=== PATIENT | female | born 1955 | race Asian ===

== ENCOUNTER 2021-12-05 09:50 | Emergency (ER) | payer SELFPAY ==
[~2021-12-05] VITALS: Ht 149.9 cm; Wt 56.5 kg
--- NOTE | 2021-12-05 09:54 | NUR ---
PT AMBULATED TO BED 5
[2021-12-05 10:00] VITALS: BP 169/91
--- NOTE | 2021-12-05 10:15 | NUR ---
66 Y/O FEMALE BIB SON IN [place] DUE TO R SIDED LOWER BACK PAIN. PT DENIES ANY TRAUMA, BUT RECALLS PAIN STARTED AFTER COOKING AND BEING ON HER FEET ALL DAY X 3 DAYS AGO. PT DENIES SOB, CHEST PAIN, FEVER OR CHILLS. PT DENIES DYSURIA, N/V/D. PT ALERT AND ORIENTED X4. BED IN LOWEST POSITION. BED RAIL X1. PMH: HTN, HYPERCHOLESTRONEMIA MEDS:ALMOPODINE, ATROVASTATIN NKA
--- NOTE | 2021-12-05 10:25 | NUR ---
Dr. Avery at bedside to exam patient with hotel recreational facilities manager.
[2021-12-05] MEDS ORDERED: KETOROLAC 30 MG/ML VIAL IM ONE (10:55)
--- NOTE | 2021-12-05 11:00 | NUR ---
PT AMBULATED TO THE RESTROOM
--- NOTE | 2021-12-05 11:23 | NUR ---
PT TAKEN TO XR [facility]IA [facility]
--- NOTE | 2021-12-05 11:36 | NUR ---
[facility]
--- NOTE | 2021-12-05 11:48 | NUR ---
URINE WALKED TO LAB HANDED OVER TO [employer] K[employer]
[2021-12-05 12:14] LABS: APPEARANCE,URINE CLEAR (CLEAR); BILIRUBIN,URINE NEGATIVE (NEGATIVE); BLOOD, URINE TRACE-L (NEGATIVE); COLOR,URINE YELLOW (YELLOW); LEUKOCYTE ESTERASE ,URINE NEGATIVE (NEGATIVE); NITRITE, URINE NEGATIVE (NEGATIVE); UGLUCOSE NEGATIVE (NEGATIVE)
[2021-12-05] MEDS ORDERED: ONDANSETRON 4 MG ODT PO ONE (12:35)
[2021-12-05 12:36] LABS: CALCIUM OXALATE CRYSTALS,UR None Seen /HPF (None Seen); COARSE GRANULAR CASTS,URINE None Seen /LPF (None Seen); FINE GRANULAR CASTS,URINE None Seen /LPF (None Seen); HYALINE CASTS, URINE None Seen /LPF (None Seen); OTHER CASTS, URINE None Seen /LPF (None Seen); OTHER CRYSTALS,URINE None Seen /HPF (None Seen); RBC,URINE 0-5 /HPF (0-5); RED BLOOD CELL CASTS,URINE None Seen /LPF (None Seen); TRICHOMONAS,URINE None Seen /HPF (None Seen); TRIPLE PHOSPHATE CRYSTAL,UR None Seen /HPF (None Seen); URIC ACID CRYSTALS,URINE None Seen /HPF (None Seen); URINE AMORPHOUS URATE None Seen /HPF (None Seen); WAXY CASTS,URINE None Seen /LPF (None Seen); WBC,URINE 0-5 /HPF (0-5); YEAST,URINE None Seen /HPF (None Seen)
--- NOTE | 2021-12-05 12:38 | NUR ---
DAUGHTER AT PATIENT BEDSIDE.
--- NOTE | 2021-12-05 12:46 | NUR ---
PATIENT AMBULATED TO RESTROOM W/DAUGHTER.
--- NOTE | 2021-12-05 12:49 | NUR ---
PATIENT AMBULATED BACK TO BED
[2021-12-05 13:57] VITALS: BP 147/89
--- NOTE | 2021-12-05 13:59 | NUR ---
Patient discharged with v/s stable. Written and verbal after care instructions given and explained. Patient verbalized understanding. Ambulatory with steady gait. All questions addressed prior to discharge. Advised to follow up with PMD.
== END 2021-12-05 13:57 | disposition home or self-care (01) ==
LOC: MED 09:50
DX: S39.012A Strain of muscle, fascia and tendon of lower back, initial encounter (principal); M48.56XA Collapsed vertebra, not elsewhere classified, lumbar region, initial encounter for fracture; M53.3 Sacrococcygeal disorders, not elsewhere classified; I10 Essential (primary) hypertension; E78.00 Pure hypercholesterolemia, unspecified; Z98.890 Other specified postprocedural states; X58.XXXA Exposure to other specified factors, initial encounter; Y92.89 Other specified places as the place of occurrence of the external cause; Y93.G3 Activity, cooking and baking; Y99.8 Other external cause status
CPT/HCPCS: 72100; 81001; 96372; 99284; J1885; Q0162